=== PATIENT | female | born 1985 | race Caucasian/White ===

== ENCOUNTER 2021-11-20 20:52 | Emergency (ER) | payer OTHER ==
[~2021-11-20] VITALS: Ht 167.6 cm; Wt 71.0 kg
--- NOTE | 2021-11-20 20:54 | PHYS DOC ---
Past History Past Medical History Palpitations General Adult HPI: HPI: ".. I ve been feeling off the last couple days.. episodes of fast heart rate.. more tired... I had episodes in past of fast heart.. but this was more persistent.. rate was up 180's at home..." Patient is a 36 year old female who presents with above hx and complaints palpitations. Patient reportedly had heart rates in the range of 180 at home. Patient denies any previous history of cardiac disorders. Patient does drink energy drinks or high caffeine. States she did not drink as much of that drink today as she usually drinks. Patient is on control pills. Low estrogen. Does not smoke. Does not drink daily. Only occasional alcohol use. Your child has had viral syndrome. Her mother has had a history of A. fib. But on no tr eatment for it. No recent travel. Not gotten flu vaccination or Covid vaccination. Review of Systems: Review of Systems: Constitutional: Denies fever or chills Eyes: Denies change in visual acuity HENT: Denies nasal congestion or sore throat Respiratory: Complains of shortness of breath with the tachycardia Cardiovascular: Complains of tachycardia GI: Denies abdominal pain, nausea, vomiting, bloody stools or diarrhea : Denies dysuria Musculoskeletal: Denies back pain or joint pain Integument: Denies rash Neurologic: Denies headache, focal weakness or sensory changes Endocrine: Denies polyuria or polydipsia Lymphatic: Denies swollen glands Psychiatric: Denies depression or anxiety Family History: Family History: Mother has A. fib and a cardiac aneurysm Current Medications: Current Meds: See nursing for home meds Allergies: Allergies: No known drug allergies Physical Exam: PE: Constitutional: Well developed, well nourished, no acute distress, non-toxic appearance. [] HENT: Normocephalic, atraumatic, bilateral external ears normal, oropharynx moist, no oral exudates, nose normal. [] Eyes: PERRLA, EOMI, conjunctiva normal, no discharge. [] Neck: Normal range of motion, no tenderness, supple, no stridor. [] Cardiovascular: Tachycardia heart rate regular rhythm, no murmur []. The monitor shows a sinus tachycardia 110 Lungs & Thorax: Bilateral breath sounds equal apex auscultation [] Abdomen: Bowel sounds normal, soft, no tenderness, no masses, no pulsatile masses. [] Skin: Warm, dry, no erythema, no rash. [] Back: No tenderness, no CVA tenderness. [] Extremities: No tenderness, no cyanosis, no clubbing, ROM intact, no edema. [] No cording appreciated Neurologic: Alert and oriented X 3, normal motor function, normal sensory function, no focal deficits noted. [] Psychologic: Affect normal, judgement normal, mood normal. [] EKG: EKG: My interpretation EKG shows a sinus rhythm at 96 bpm. No acute morphology time of EKG is 2056 My interpretation second EKG shows a sinus rhythm at 90 bpm no acute interval change. Time of EKG is 2338 hrs. [] Radiology/Procedures: Radiology/Procedures: [][address] [id number] IMAGING REPORT Signed PATIENT: NURY BRENNER NACCOUNT: [id number] : 1985 LOCATION: ER AGE: 36 SEX: F EXAM STATUS: REG ER ORD. PHYSICIAN: BRANDEN MARCUM MD REASON: tachy, short of breath, b /c Omni 350 100cc PROCEDURE: CT ANGIOGRAPHY CHEST CTA CHEST INDICATION: tachy, short of breath, b /c Comparison: None. TECHNIQUE: Following the uneventful administration of intravenous contrast, 100 cc Omnipaque 350, axial CT sections were obtained through the lungs and upper abdomen. Multiplanar reconstructions and MIP images were obtained. PQRS compliance statement: One or more of the following individualized dose reduction techniques were utilized for this examination: 1. Automated exposure control 2. Adjustment of the mA and/or kV according to patient size 3. Use of iterative reconstruction technique FINDINGS: Pulmonary arteries: No evidence of pulmonary thrombolic disease Lungs and Airways: No pulmonary mass or consolidation. No abnormality of the central airways. Pleura: The pleural spaces are normal. Heart and Mediastinum: The visualized thyroid is normal in size and attenuation. No axillary or supraclavicular lymphadenopathy. No mediastinal, hilar or retrocrural lymphadenopathy. The heart and pericardium are within normal limits. The great vessels of the thorax are normal. Abdomen: Splenic artery aneurysm measuring 1.5 cm, near the hilum. Bones and Soft Tissues: The visualized bones and chest wall soft tissues are within normal limits. IMPRESSION: 1. No evidence of pulmonary thromboembolic disease. 2. No pulmonary mass or consolidation. 3. 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 Recommend one-year follow-up CTA abdomen. Electronically signed by: Remy Mahan MD (11/20/2021 11:32 PM) [facility] DICTATED AND SIGNED BY: REMY MAHAN MD DATE: 11/20/212322 CC: BRANDEN MARCUM MD; PCP,UNKNOWN ~MTH0 0 Heart Score: C/O Chest Pain: N/A Risk Factors: Risk Factors: DM, Current or recent (<one month) smoker, HTN, HLP, family history of CAD, obesity. Risk Scores: Score 0 - 3: 2.5% MACE over next 6 weeks - Discharge Home Score 4 - 6: 20.3% MACE over next 6 weeks - Admit for Clinical Observation Score 7 - 10: 72.7% MACE over next 6 weeks - Early Invasive Strategies Course & Med Decision Making: Course & Med Decision Making Pertinent Labs and Imaging studies reviewed. (See chart for details) Patient avoid all energy drinks and caffeine drinks. Follow-up primary care. Follow-up cardiology. Take daily baby aspirin. We will give a trial of metoprolol 25 tonight. Follow-up splenic aneurysm in 1 year. Patient issued a disc of CT labs and EKG. Plan for assignment for in [facility]. Follow up with Elsy. Followup Spleen art. Aneurysm 1 year Impression: 1. Tachycardia- Sinus vs SVT vs PSVT 2. Anemia 11.8 3. Elevated D-dimer 0.97 4. Splenic Artery 1.5cm aneurysm [] Dragon Disclaimer: Dragon Disclaimer: This electronic medical record was generated, in whole or in part, using a voice recognition dictation system. Dragon Disclaimer This chart was dictated in whole or in part using Voice Recognition software in a busy, high-work load, and often noisy Emergency Department environment. It may contain unintended and wholly unrecognized errors or omissions. BRANDEN MARCUM MD Nov 20, 2021 20:54
[2021-11-20] MEDS ORDERED: IV RINGERS SOLUTION,LACTATED 1,000 ML IV SCH (21:00)
[2021-11-20 21:39] LABS: BASO % 0 % (0-3); EOS # 0.2 x10^3/uL (0.0-0.7); EOS % 3 % (0-3); HEMATOCRIT 36.2 % (36.0-47.0); HEMOGLOBIN 11.8 g/dL (12.0-15.5); LYMPH % 25 % (24-48); MEAN CORPUSCULAR HEMOGLOBIN 29 pg (25-35); MEAN CORPUSCULAR HGB CONC 33 g/dL (31-37); MEAN CORPUSCULAR VOLUME 89 fL (79-100); MONO # 0.5 x10^3/uL (0.0-1.1); MONO % 6 % (0-9); NEUT # 5.3 x10^3uL (1.8-7.7); NEUT % 65 % (31-73); PLATELET COUNT 201 x10^3/uL (140-400); RED BLOOD COUNT 4.06 x10^6/uL (3.50-5.40); WHITE BLOOD COUNT 8.1 x10^3/uL (4.0-11.0)
[2021-11-20 21:49] LABS: CLARITY,URINE CLEAR; COLOR,URINE YELLOW; GLUCOSE,URINE NEG (NEG)
[2021-11-20 21:49] LABS: CALCIUM 8.2 mg/dL (8.5-10.1); CREATININE 0.7 mg/dL (0.6-1.0); GFR 95.8; POTASSIUM 3.5 mmol/L (3.5-5.1)
[2021-11-20 21:50] LABS: BACTERIA,URINE 0 /HPF (0-FEW); NITRITE,URINE NEG (NEG); RBC,URINE 0 /HPF (0-2); SQUAMOUS EPITHELIAL CELL,UR FEW /LPF; UROBILINOGEN,URINE 0.2 mg/dL (0.2 mg/dL); WBC,URINE 0 /HPF (0-4)
[2021-11-20 21:56] LABS: INFLUENZA A PATIENT NEGATIVE (NEGATIVE); INFLUENZA B PATIENT NEGATIVE (NEGATIVE)
[2021-11-20 22:02] LABS: ALBUMIN 3.4 g/dL (3.4-5.0); DIRECT BILIRUBIN 0.1 mg/dL (0.0-0.2); TOTAL BILIRUBIN 0.2 mg/dL (0.2-1.0); TOTAL PROTEIN 6.7 g/dL (6.4-8.2)
[2021-11-20] MEDS ORDERED: IOHEXOL 350 MG/ML 100 ML VIAL. IV ONE (22:45)
--- NOTE | 2021-11-20 23:35 | RAD ---
CTA CHEST INDICATION: tachy, short of breath, b /c Comparison: None. TECHNIQUE: Following the uneventful administration of intravenous contrast, 100 cc Omnipaque 350, axi al CT sections were obtained through the lungs and upper abdomen. Multiplanar reconstructions and MIP images were obtained. RS compliance statement: One or more of the following individualized dose reduction techniques were utilized for this examinat ion: 1. Automated exposure control 2. Adjustment of the mA and/or kV according to patient size 3. Use of iterative reconstruction technique FINDINGS: Pulmonary arteries: No evidence of pulmonary thrombolic disease Lungs and Airways: No pulmonary mass or consolidation. No abnormality of the central airways. Pleura: The pleural spaces are normal. Heart and Mediastinum: The visualized thyroid is normal in size and attenuation. No axillary or supra clavicular lymphadenopathy. No mediastinal, hilar or retrocrural lymphadenopathy. The heart and peric ardium are within normal limits. The great vessels of the thorax are normal. Abdomen: Splenic artery aneurysm measuring 1.5 cm, near the hilum. Bones and Soft Tissues: The visualized bones and chest wall soft tissues are within normal limits. IMPRESSION: 1. No evidence of pulmonary thromboembolic disease. 2. No pulmonary mass or consolidation. 3. 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 Recommend one-year follow-up CTA abdomen. Electronically signed by: Sunny Roblero MD (11/20/2021 11:32 PM) [facility]
[2021-11-21] MEDS ORDERED: METOPROLOL SUCC 24HR ER 25 MG TAB.ER.24H. PO ONE (00:30)
[2021-11-21] MEDS ORDERED: ASPIRIN 325 MG TABLET PO ONE (01:00)
--- NOTE | 2021-11-21 01:06 | EKG ---
[address] [address] Test Date: 2021-11-20 Test Time: 22:38:00 Pat Name: NURY BRENNER Department: Room: Gender: F [employer]: [place] : 1985 Requested By: BRANDEN MARCUM Order Number: [id number] Reading MD: Jon Oswald Measurements Intervals [place] Rate: 90 P: 49 [place]: 158 QRS: 68 QRSD: 70 T: 33 QT: 340 QTc: 420 Interpretive Statements SINUS RHYTHM Electronically Signed On 11-21-2021 19:27:04 LACE FINISHER by Jon Oswald
--- NOTE | 2021-11-21 01:10 | EKG ---
[address] [address] Test Date: 2021-11-20 Test Time: 21:10:57 Pat Name: NURY BRENNER Department: Room: Gender: F [employer]: : 1985 Requested By: BRANDEN MARCUM Order Number: [id number] Reading MD: Jon Oswald Measurements Intervals [place] Rate: 96 P: 74 MS: 148 QRS: 70 QRSD: 72 T: 39 QT: 336 QTc: 431 Interpretive Statements SINUS RHYTHM NORMAL ECG RI6.02 No previous ECG available for comparison Electronically Signed On 11-21-2021 19:27:36 SHORT ORDER COOK by Jon Oswald
[2021-11-21 01:24] VITALS: BP 108/68
== END 2021-11-21 01:31 | disposition home or self-care (01) ==
LOC: ER 20:52
DX: R00.0 Tachycardia, unspecified (principal); D64.9 Anemia, unspecified; R79.1 Abnormal coagulation profile; I71.9 Aortic aneurysm of unspecified site, without rupture; Z20.822 Contact with and (suspected) exposure to COVID-19
CPT/HCPCS: 36415; 71275; 80048; 80076; 81001; 81025; 82550; 83690; 83735; 83880; 84443; 84484; 85025; 85379; 85610; 85730; 87428; 93005; 96360; 96361; 99285; J7120; Q9967

== ENCOUNTER → 2021-12-12 | Outpatient (CLI) | payer OTHER ==
[2021-11-21 01:24] VITALS: BP 108/68
--- NOTE | 2021-12-14 10:10 | CARD ---
MR#: [id number] Date of Study: 12/12/2021 Ordering Physician: PILLO CHOUDHARY, Referring Physician: PILLO CHOUDHARY, Tech: Brijesh Harrell RUST APPROVED REPORT EXAM: Two-dimensional and M-mode echocardiogram with Doppler and color Doppler. Other Information Quality : GoodHR: 75bpm Rhythm : NSR w/occasional PVC's INDICATION Tachycardia 2D DIMENSIONS Left Atrium(2D)3.2 (1.6-4.0cm)IVSd0.9 (0.7-1.1cm) Aortic Root(2D)2.7 (2.0-3.7cm)LVDd4.4 (3.9-5.9cm) LVOT Diameter1.9 (1.8-2.4cm)PWd0.9 (0.7-1.1cm) LVDs2.6 (2.5-4.0cm)FS (%) 41.8 % SV63.4 mlLVEF(%)73.0 (>50%) Aortic Valve AoV Peak Mike.158.7cm/sAoV VTI30.0cm AO Peak GR.10.1mmHgLVOT Peak Mike.117.1cm/s LVOT VTI 22.20cmAO Mean GR.5mmHg MARY (VMAX)1.95mn2CWS (VTI)2.00cm2 Mitral Valve MV E Iwbttrwv637.5cm/sMV E Peak Gr.5mmHg MV DECEL [id number] A Iuxyylvu12.6cm/s MV E Mean Gr.3mmHgE/A Ratio1.7 Pulmonary Valve PV Peak Ylxejajs749.8cm/sPV Peak Grad.6mmHg Tricuspid Valve TR P. Qcqdoutw377ir/sTR Peak Gr.25mmHg Pulmonary Vein S1 Tqqqhgae77.8cm/sD2 Okyjqwcj91.6cm/s LEFT VENTRICLE The left ventricle is normal size. There is normal left ventricular wall thickness. The left ventricu lar systolic function is normal and the ejection fraction is within normal range. The Ejection Fracti on is 70% There is normal LV segmental wall motion. The left ventricular diastolic function and filli ng is normal for age. No left ventricle thrombus noted on this study. There is no ventricular septal defect visualized. There is no left ventricular aneurysm. There is no mass noted in the left ventricl e. RIGHT VENTRICLE The right ventricle is normal size. There is normal right ventricular wall thickness. The right ventr icular systolic function is normal. ATRIA The left atrium size is normal. The right atrium size is normal. The interatrial septum is intact wit h no evidence for an atrial septal defect or patent foramen ovale as noted on 2-D or Doppler imaging. AORTIC VALVE The aortic valve is normal in structure and function. The aortic valve is trileaflet. Doppler and Col or Flow revealed no significant aortic regurgitation. There is no significant aortic valvular stenosi s. There is no aortic valvular vegetation. MITRAL VALVE The mitral valve is normal in structure and function. There is no evidence of mitral valve prolapse. There is no mitral valve stenosis. Doppler and Color Flow revealed no mitral valve regurgitation note d. TRICUSPID VALVE The tricuspid valve is normal in structure and function. Doppler and Color Flow revealed trace tricus pid regurgitation. There is no tricuspid valve prolapse or vegetation. There is no tricuspid valve st enosis. PULMONIC VALVE Doppler and Color Flow revealed no pulmonic valvular regurgitation. There is no pulmonic valvular fe nosis. GREAT VESSELS The aortic root is normal in size. The ascending aorta is normal in size. The IVC is normal in size a nd collapses >50% with inspiration. PERICARDIAL EFFUSION There is no pleural effusion. There is no evidence of significant pericardial effusion. Critical Notification Critical Value: No <Conclusion> The left ventricular systolic function is normal and the ejection fraction is within normal range. Th e Ejection Fraction is 70% There is normal LV segmental wall motion. Signed by : Pillo Choudhary, Electronically Approved : 12/14/2021 10:10:37
== END ==
LOC: ECHO 13:55
PROVIDERS: ATTEND Internal Medicine Cardiovascular Disease
DX: R00.0 Tachycardia, unspecified (principal)
CPT/HCPCS: 93306